=== PATIENT | female | born 1965 | race African-American/Black ===

== ENCOUNTER 2022-10-15 17:42 | Emergency (ER) | payer BC, SELFPAY ==
--- NOTE | ~2022-10-15 | CT_ITS ---
EXAMINATION: CT orbit BI w con DATE: 10/15/2022 23:21 INDICATION: Left eye pain. Bilateral eye redness. TECHNIQUE: Computed tomography (CT) of the orbits was performed with 75 mL Omnipaque 350 intravenous contrast. Automated exposure control and iterative reconstruction technique were employed. The dose-l ength product was 332.65 mGy-cm. COMPARISON: None FINDINGS: The optic nerves, extraocular muscles, and ocular globes are normal. There is no abnormal m ass. There is mild mucosal thickening in the paranasal sinuses. There is leftward deviation of the na garret septum. The mastoid air cells are normal. IMPRESSION: 1. Normal orbits. Reviewed, dictated and finalized at location A. ICULTURE SUPERVISOR IMPRESSION: 1. Normal orbits.
[2022-10-15 18:24] VITALS: BP 140/90; PULSE 83; RESP 16; TEMP 36.2; O2SAT 100
[2022-10-15 19:59] VITALS: BP 166/90; PULSE 88; RESP 14; TEMP 36.7; O2SAT 100
--- NOTE | 2022-10-15 21:38 | ED.EYEPROB ---
HPI - Eye Problem General Chief complaint: Eye Problems Stated complaint: bilat eyes itching & draining Time Seen by Provider: 10/15/22 20:00 Source: patient Mode of arrival: ambulatory Limitations: no limitations History of Present Illness HPI Narrative: Patient is a 57-year-old female who presents to the ED with eye problems. Patient reports having issues with bilateral eye redness, itching, clear drainage for the past 3 months. She has been on oral and eyedrop antibiotics, oral and eyedrop steroids, and has been taking Zyrtec at home. She has seen an visual display manager and bit sharpener for this and is scheduled to follow-up next . Today, patient developed pain in her left eye, as well as photosensitivity. She states she has not had pain over the last few months. Denies any fever, nausea, vomiting, headache. Related Data Allergies Allergy/AdvReac Type Severity Reaction Status Date / Time Sulfa (Sulfonamide Allergy Dizziness Verified 10/15/22 18:27 Antibiotics) Review of Systems Review of Systems: CONSTITUTIONAL: Denies fever, chills, or sweats. EYES: See HPI. ENT: See HPI. CARDIOVASCULAR: Denies chest pain. RESPIRATORY: Denies dyspnea. GASTROINTESTINAL: Denies nausea, vomiting. All systems reviewed & are unremarkable except as noted in HPI and below PMFSH Past Medical History Medical History (Updated 10/16/22 @ 02:24 by Alice Castillo PA-C) No pertinent past medical history Surgical History Surgical History (Updated 10/15/22 @ 21:40 by Alice Castillo PA-C) No pertinent past surgical history Social History Social History (Updated 10/15/22 @ 21:40 by Alice Castillo PA-C) Smoking status: Never smoker Exam Narrative: GENERAL: Well appearing, morbidly obese, non-toxic, in no acute distress. HEAD: Normocephalic, atraumatic. EYES: PERRLA/EOMI, mild discomfort in L eye with EOM. L eye with significant conjunctival injection and mild chemosis. Watery discharge bilaterally. Mild conjunctival injection to right eye. Darkening of skin around periorbital regions bilaterally, no significant swelling of eyelids or periorbital regions. No proptosis. NECK: Supple. No adenopathy, no masses. No meningeal signs. RESPIRATORY: Airway patent, respirations nonlabored. Clear to auscultation bilaterally, no rales, rhonchi, wheezing. CARDIOVASCULAR: Regular rate and rhythm without murmurs, rubs, or gallops. Radial pulses 2+ and equal bilaterally. MUSCULOSKELETAL: Moves all extremities. Strength/ROM intact without gross deformities. SKIN: Warm, dry, normal color. No rashes. NEURO: A&O X3. Speech clear. Cranial nerves II-XII grossly intact. Steady gait. No ataxic movements. PSYCHIATRIC: Appropriate mood and affect. Normal interaction. Course Vital Signs Vital signs: Vital Signs Temperature 97.2 F L 10/15/22 18:24 Pulse Rate 83 10/15/22 18:24 Respiratory Rate 16 10/15/22 18:24 Blood Pressure 140/90 10/15/22 18:24 Pulse Oximetry 100 10/15/22 18:24 Temperature 98.1 F 10/15/22 19:59 Pulse Rate 80 10/16/22 01:01 Respiratory Rate 25 H 10/16/22 01:01 Blood Pressure 168/90 H 10/16/22 01:01 Pulse Oximetry 96 10/16/22 01:01 MDM - Eye Problem MDM Narrative Medical decision making narrative: Patient presented to ED with several month history of irritation, drainage, redness to both eyes. Now with mild pain and photophobia and left eye. Patient's vital stable upon arrival. No vision changes reported. Visual acuity intact bilaterally. IOP 9-12, low suspicion for glaucoma. Fluorescein staining with Melara lamp examination without evidence of corneal or conjunctival abrasion, no dendritic patterns. Basic blood work was obtained and without leukocytosis. Minimal elevation of ESR. Normal CRP. CT of orbits without concerning findings, showing inflammation versus infection of lacrimal ducts. Patient denying any recent systemic signs of infection. I attempted to conta
[2022-10-15 21:45] LABS: Basophils Absolute Auto 0.1 K/mm3 (0.0-0.1); Basophils Percent Auto 0.9 % (0.2-1.2); Eosinophils Absolute Auto 0.4 K/mm3 (0-0.3); Eosinophils Percent Auto 7.5 % (0-4.4); Hematocrit 43.3 % (37.0-47.0); Hemoglobin 13.6 g/dL (12.0-15.0); Immature Granulocyte Absolute 0.02 K/mm3 (0.00-0.031); Immature Granulocyte Percent A 0.4 % (0-0.5); Lymphocytes Absolute Auto 2.52 K/mm3 (0.9-3.2); Lymphocytes Percent Auto 47.1 % (18.3-44.2); Mean Corpuscular HGB Conc 31.4 g/dl (32-36); Mean Corpuscular Hemoglobin 27.8 pg (26-34); Mean Corpuscular Volume 88.4 fl (80-100); Mean Platelet Volume 10.3 fl (7.4-10.4); Monocytes Absolute Auto 0.4 K/mm3 (0.1-0.6); Monocytes Percent Auto 7.1 % (2.6-8.5); Platelet Count Result 277 k/mm3 (150-375); Red Cell Distribution Width 14.1 % (11.5-14.5); White Blood Count 5.4 K/mm3 (4.5-10.0)
[2022-10-15 22:12] LABS: Alanine Aminotransferase 22 U/L (6-35); Albumin Level 4.2 g/dL (3.5-5.1); Alkaline Phosphatase 109 U/L (38-126); Anion Gap 2 mmol/L (8-16); Aspartate Amino Transferase 25 U/L (14-36); Bilirubin,Total 0.6 mg/dL (0.2-1.3); Blood Urea Nitrogen 9 mg/dL (7-17); CRP 0.7 mg/dL (<1.0); Calcium 8.6 mg/dL (8.4-10.2); Carbon Dioxide 30 mmol/L (22-30); Chloride 103 mmol/L (98-107); Estimated Glomerular Filt Rate > 60; Glucose 119 mg/dL (65-110); Potassium 3.3 mmol/L (3.4-5.0); Sodium 135 mmol/L (137-145)
[2022-10-15 22:15] LABS: Erythrocyte Sedimentation Rate 21 mm/hr (0-20)
[2022-10-15 22:31] VITALS: BP 164/82; PULSE 74; RESP 23; O2SAT 96
[2022-10-15 23:17] VITALS: BP 182/94; PULSE 78; RESP 24; O2SAT 100
[2022-10-16 00:01] VITALS: BP 174/93; PULSE 72; RESP 21; O2SAT 97
[2022-10-16 00:31] VITALS: BP 166/88; PULSE 84; RESP 22
[2022-10-16 01:01] VITALS: BP 168/90; PULSE 80; RESP 25; O2SAT 96
--- NOTE | 2022-10-16 02:00 | PC.NURSE ---
pt. requesting pain medications. ERP made aware
[2022-10-16] MEDS: ACETAMINOPHEN 500 MG TABLET 1000 MG PO (02:52)
[2022-10-16 02:53] VITALS: BP 159/98; PULSE 90; RESP 22; O2SAT 95
== END 2022-10-16 02:50 | disposition home or self-care (01) ==
PROVIDERS: Emergency Provider Physician Assistant
DX: H10.9 Unspecified conjunctivitis (principal)
CPT/HCPCS: 36415; 70481; 80053; 85025; 85652; 86140; 99284; A9270; Q9967